=== PATIENT | female | born 1970 | race Caucasian/White ===

== ENCOUNTER → 2018-03-05 | Outpatient (CLI) | payer MEDICARE ==
[~2018-03-05] MED LIST: ACIPHEX20 MG PO; AMBIEN 10MG10 MG PO; AMBIEN5 MG PO; AMOXICILLIN 8751 TAB PO; AUGMENTIN 500 M1 TAB PO; BENADRYL25 MG PO; CEFTIN500 MG PO; CYMBALTA; DIFLUCAN150 MG PO; DILAUDID 2MG/2 MG/M1; DILAUDID 4MG TAB4 MG PO; DILAUDID PUMP; EFFEXOR-XR150 MG PO; FLEXERIL10 MG PO; HCTZ 25MG25 MG PO; IMITREX25 MG PO; IMITREX50 MG PO; KLONOPIN 1MG1 MG PO; LAMICTAL 25MG T25 MG PO; LEVEMIR; LEVEMIR SQ; LORTAB 10/500 51 TAB PO; LORTAB 5/500 501 TAB PO; LUNESTA3 MG PO; LYRICA50 MG PO; NOVALOG; NOVOLOG100 U/ML SQ; OXYCODONE HCL5 MG PO; PANGESTYME; PANGESTYME PO; PHENERGAN 25 TA25 MG; PHENERGAN 25 TA25 MG PO; PHENERGAN25 MG RC; PRILOSEC 20MG20 MG PO; REGLAN 10MG10 MG/TAB PO; SEE INSTRUCTIONS IT; See Instructions IT; XANAX XR0.5 MG PO; XANAX0.5 MG PO; ZOFRAN 8MG8 MG PO; [UNRECOGNIZED DRUG - OTHER]; antibiotic
== END ==
LOC: COL.RAD 13:52
DX: M25.572 Pain in left ankle and joints of left foot (principal)
CPT/HCPCS: J3301; Q9967

== ENCOUNTER → 2020-08-14 | Outpatient (CLI) | payer MEDICARE, MEDICAID | LOC: COL.RAD 07-31 14:00 | DX: R06.02 Shortness of breath (principal); M67.813 Other specified disorders of tendon, right shoulder; M75.51 Bursitis of right shoulder ==